=== PATIENT | female | born 1995 | race Caucasian/White ===

== ENCOUNTER 2018-04-03 21:10 | Emergency (ER) | payer OTHER | END 2018-04-04 00:08 | disposition home or self-care (01) | LOC: FTE 04-04 00:08 | DX: J06.9 Acute upper respiratory infection, unspecified (principal) | CPT/HCPCS: 87880; 99283 ==

== ENCOUNTER 2018-09-07 18:55 | Emergency (ER) | payer OTHER ==
[2018-09-07 21:57] LABS: ADD UMIC NO; UR ASCORBIC ACID NEGATIVE (NEGATIVE); UR BILIRUBIN (Dip) NEGATIVE (NEGATIVE); UR BLOOD (Dip) NEGATIVE (NEGATIVE); UR CLARITY CLEAR (CLEAR); UR COLOR YELLOW (YELLOW); UR GLUCOSE (Dip) NEGATIVE (NEGATIVE); UR KETONES (Dip) NEGATIVE (NEGATIVE); UR LEUKOCYTE ESTERASE (Dip) NEGATIVE Leu/ul (NEGATIVE); UR NITRITE (Dip) NEGATIVE (NEGATIVE); UR SPECIFIC GRAVITY (Dip) 1.012 (1.003-1.030); UR TOTAL PROTEIN (Dip) NEGATIVE (NEGATIVE); UR UROBILINOGEN (Dip) NEGATIVE (NEGATIVE)
== END 2018-09-07 23:10 | disposition home or self-care (01) ==
LOC: FTE 18:55
DX: J32.9 Chronic sinusitis, unspecified (principal); R10.9 Unspecified abdominal pain
CPT/HCPCS: 81003; 81025; 87086; 99283

== ENCOUNTER 2018-09-11 05:05 | Emergency (ER) | payer OTHER ==
[2018-09-11 05:42] LABS: URINE BLOOD (Dip) POC Negative (NEGATIVE); URINE GLUCOSE (Dip) POC Negative (NEGATIVE); URINE KETONES (Dip) POC Negative (NEGATIVE); URINE LEUKOCYTE EST (Dip) POC Negative (NEGATIVE); URINE NITRITE (Dip) POC Negative (NEGATIVE); URINE TOTAL PROTEIN POC 1+ (NEGATIVE)
[2018-09-11 05:42] LABS: URINE PH (Dip) POC 5.5 (5.0-8.5)
[2018-09-11] MEDS: KETOROLAC 30 MG INJ IM (05:42)
== END 2018-09-11 05:56 | disposition home or self-care (01) ==
LOC: FTE 05:05
DX: M54.41 Lumbago with sciatica, right side (principal)
CPT/HCPCS: 81003; 81025; 96372; 99284-25